=== PATIENT | male | born 1950 | race Caucasian/White ===

== ENCOUNTER → 2016-12-08 | Day surgery (SDC) | payer OTHER ==
[2016-11-25 10:55] VITALS: BMI 28.0
[~2016-12-08] VITALS: Ht 185.4 cm; Wt 96.4 kg
[~2016-12-08] MED LIST: ASPCH81X PO; ATOR10TA88 PO; LIDOCAINE HCL 2% 2 ML VIAL (20MG/ML) ONE; LTR510 PO; PANT40TA PO; PROPOFOL IV EMULSION 10 MG/ML 20 ML VIAL IV ONE; SILD100T PO; SODIUM CHLORIDE 0.9% 500ML 500 ML IV ONE
[2016-12-08 10:36] VITALS: Ht 185.4 cm; Wt 96.4 kg
--- NOTE | 2016-12-08 11:04 | Endo History and Physical ---
History & Physical Date of Service: Dec 08, 2016. Chief Complaint: HOARSENESS REFLUX Referring Physician: RENATO RUFF History of Present Illness 66 yo CM who presents for EGD secondary to GERD and hoarseness. Past Surgical History Hx Cardiac Surgery: No Hx Internal Defibrillator: No Hx Pacemaker: No Hx Abdominal Surgery: Yes (APPY) Hx of Implantable Prosthesis: No Hx Post-Op Nausea and Vomiting: No Hx Cancer Surgery: No Hx Thoracic Surgery: No Hx Orthopedic: No Hx Urinary Tract Surgery: No Family History None Social History Smoking Status: Never Smoker Hx Substance Use: No Hx Alcohol Use: Yes (OCCASSIONALLY) Allergies Coded Allergies: NO KNOWN DRUG ALLERGIES (Verified Allergy, Unknown, ., 12/08/16) Current Medications Reported Home Medications Medications Dose Route/Sig Max Daily Dose Days Date Category Dose Instructions Viagra (Sildenafil Citrate) 100 Mg Tab 100 Mg PO PRN 11/25/16 Reported Protonix (Pantoprazole Sodium) 40 Mg Tab 40 Mg PO BID 11/25/16 Reported PT VERBALIZED RECENTLY STOPPED TAKING D/T SIDE EFFECTS Lotrel 5MG/10MG (Amlodipine/Benazepril HCl) 5 Mg/10 Mg Cap 1 Cap PO QAM 11/25/16 Reported Lipitor (Atorvastatin Calcium) 10 Mg Tab 10 Mg PO QAM 11/25/16 Reported Aspirin Chewable (Aspirin) 81 Mg Chew 81 Mg PO QAM 11/25/16 Reported Vital Signs Weight (Kilograms): 96.36 Height (Feet): 6 Height (Inches): 1 Date Time Temp Pulse Resp B/P Pulse Ox O2 Delivery O2 Flow Rate FiO2 12/08/16 10:42 36.6 64 18 137/86 94 Room Air Physical Exam General Appearance: WD/WN, no apparent distress Respiratory/Chest: Auscultation: breath sounds normal Cardiovascular: Heart Auscultation: RRR Abdomen: Bowel Sounds: normal Inspection & Palpation: soft, non-distended, no tenderness, guarding & rebound Assessment and Plan Assessment: 66 yo CM who presents for EGD secondary to GERD and hoarseness. Plan: Proceed with EGD.
--- NOTE | 2016-12-08 11:47 | Discharge Instructions ---
Endoscopy Patient Instructions Date / Procedure(s) Performed Dec 08, 2016. EGD Allergy Information Coded Allergies: NO KNOWN DRUG ALLERGIES (Verified Allergy, Unknown, ., 12/08/16) Discharge Date / Findings Dec 08, 2016. Gastritis s/p biopsies Hiatal hernia Schatzki's Ring s/p dilation Medication Instructions 1) OK to resume all medications today as prescribed 2) Stop Protonix 3) Start Zantac 300mg by mouth twice daily 15 minutes prior to breakfast and dinner. Reported Home Medications Medications Dose Route/Sig Max Daily Dose Days Date Category Dose Instructions Viagra (Sildenafil Citrate) 100 Mg Tab 100 Mg PO PRN 11/25/16 Reported Protonix (Pantoprazole Sodium) 40 Mg Tab 40 Mg PO BID 11/25/16 Reported PT VERBALIZED RECENTLY STOPPED TAKING D/T SIDE EFFECTS Lotrel 5MG/10MG (Amlodipine/Benazepril HCl) 5 Mg/10 Mg Cap 1 Cap PO QAM 11/25/16 Reported Lipitor (Atorvastatin Calcium) 10 Mg Tab 10 Mg PO QAM 11/25/16 Reported Aspirin Chewable (Aspirin) 81 Mg Chew 81 Mg PO QAM 11/25/16 Reported Provider Instructions Activity Restrictions - No exercising or heavy lifting for 24 hours. - Do not drink alcohol the day of the procedure. - Do not drive a car or operate machinery until the day after the procedure. - Do not make any important decisions or sign important papers in 24 hours after the procedure. Following Day: - Return to full activity which may include returning to work/school. Diet Start your diet with liquids and light foods (jello, soup, juice, toast). Then eat your usual diet if not nauseated. Treatment For Common After Affects For mild abdominal pain, bloating, or excessive gas: - Rest - Eat lightly - Lie on right side Follow-Up Information Follow-up with RENATO RUFF as scheduled Anesthesia Information What You Should Know You have had a procedure that required some medicine to reduce anxiety and discomfort. This treatment is called moderate sedation. After receiving the treatment, you may be sleepy, but you will be able to breathe on your own. The effects of the treatment may last for several hours. Follow these instructions along with Activity/Diet recommendations noted above: * Do NOT do anything where dizziness or clumsiness would be dangerous. * Rest quietly at home today, then you can be up and about tomorrow. * Have a responsible person stay with you the rest of today. * You may have had an I.V. today. If so, you may take the dressing off later today. Recommendations Call your doctor if: * Trouble breathing * Continuous vomiting for more than 24 hours * Temperature above 101 degrees * Severe abdominal pain or bloating * Pain not relieved by pain medicine ordered * There is increased drainage or redness from any incision * A large amount of rectal bleeding greater than 2-3 tablespoons. (If you had a polyp/s removed or have hemorrhoids, a small amount of blood - from the rectum is to be expected.) * You have any unanswered questions or concerns. IN THE EVENT OF A SERIOUS EMERGENCY, GO TO THE NEAREST EMERGENCY ROOM Your discharge instructions were prepared by provider Kp Redd. Patient Instructions Signature Page Raj Recinos Patient (or Guardian) Signature/Date: I have read and understand the instructions given to me by my caregivers. Caregiver/RN/Doctor Signature/Date: The above-named patient and/or guardian has received patient instructions on this date. + Original Patient Signature Page (only) stays with chart. Please make copy for patient.
--- NOTE | 2016-12-08 11:53 | GI REPORT ---
Procedure Date: 12/08/2016 11:31 AM Procedure: Upper GI endoscopy Indications: Gastro-esophageal reflux disease Medicines: Monitored Anesthesia Care Complications: No immediate complications. Estimated Blood Loss: Estimated blood loss: none. Procedure: Pre-Anesthesia Assessment: - Prior to the procedure, a History and Physical was performed, and patient medications and allergies were reviewed. The patient's tolerance of previous anesthesia was also reviewed. The risks and benefits of the procedure and the sedation options and risks were discussed with the patient. All questions were answered, and informed consent was obtained. Prior Anticoagulants: The patient has taken aspirin, last dose was 1 day prior to procedure. ASA Grade Assessment: II - A patient with mild systemic disease. After reviewing the risks and benefits, the patient was deemed in satisfactory condition to undergo the procedure. After obtaining informed consent, the endoscope was passed under direct vision. Throughout the procedure, the patient's blood pressure, pulse, and oxygen saturations were monitored continuously. The scope was introduced through the mouth, and advanced to the second part of duodenum. The upper GI endoscopy was accomplished without difficulty. The patient tolerated the procedure well. Findings: A moderate Schatzki ring (acquired) was found at the gastroesophageal junction. A TTS dilator was passed through the scope. Dilation with an 18-19-20 mm balloon (to a maximum balloon size of 20 mm) dilator was performed. The dilation site was examined and showed moderate improvement in luminal narrowing. A medium-sized hiatus hernia was present. Localized moderate inflammation characterized by erythema was found in the gastric antrum. Biopsies were taken with a cold forceps for histology. The examined duodenum was normal. Impression: - Moderate Schatzki ring. Dilated. - Medium-sized hiatus hernia. - Gastritis. Biopsied. - Normal examined duodenum. Recommendation: - Resume previous diet. - Use Protonix (pantoprazole) 40 mg PO daily. - Await pathology results. - Return to GI office as previously scheduled. Kp Redd, DO 12/08/2016 11:53:19 AM This report has been signed electronically. Note Initiated On: 12/08/2016 11:31 AM I attest to the content of the Intraoperative Record and orders documented therein, exceptions below
--- NOTE | 2016-12-08 12:05 | Anesthesiology Progress Note ---
Anesthesia Post Op Note Date & Time Dec 08, 2016 at 12:06 Vital Signs Pain Intensity: 0 Vital Signs Past 12 Hours Date Time Temp Pulse Resp B/P Pulse Ox O2 Delivery O2 Flow Rate FiO2 12/08/16 11:48 69 18 104/56 97 Room Air 12/08/16 10:42 36.6 64 18 137/86 94 Room Air Notes Mental Status: alert / awake / arousable, participated in evaluation Pt Amnestic to Procedure: Yes Nausea / Vomiting: adequately controlled Pain: adequately controlled Airway Patency, RR, SpO2: stable & adequate BP & HR: stable & adequate Hydration State: stable & adequate Anesthetic Complications: no major complications apparent
[2016-12-08 12:30] VITALS: BP 145/82; PULSE 60; O2SAT 95
== END | disposition home or self-care (01) ==
LOC: C.GI 10:11
PROVIDERS: ATTEND Internal Medicine
DX: K22.2 Esophageal obstruction (principal); K29.70 Gastritis, unspecified, without bleeding; K21.9 Gastro-esophageal reflux disease without esophagitis; K44.9 Diaphragmatic hernia without obstruction or gangrene; Z98.890 Other specified postprocedural states; Z79.82 Long term (current) use of aspirin

== ENCOUNTER → 2017-08-06 | Outpatient (CLI) | payer OTHER ==
[~2017-08-06] MED LIST changes: +AMLO5CAP2 PO; +ATOR10TA82 PO; -ATOR10TA88 PO; -LIDOCAINE HCL 2% 2 ML VIAL (20MG/ML) ONE; -PROPOFOL IV EMULSION 10 MG/ML 20 ML VIAL IV ONE; -SODIUM CHLORIDE 0.9% 500ML 500 ML IV ONE
--- NOTE | 2017-08-06 11:46 | EXERCISE STRESS ECHO ---
*NOTICE TO RECEIVING REPUBLICAN AGENCY This information is strictly Confidential and protected under [place] law. [place] law prohibits you from making any further disclosure of this information unless further disclosure is expressly permitted by the written consent of the person to whom it pertains or is authorized by law. A general authorization for the release of medical or other information is not sufficient for this purpose. Hospital accepts no responsibility if the information is made available to any other person, INCLUDING THE PATIENT. Interpretation Summary * Name: SHAWN NEVES Study Date: 08/06/2017 09:32 AM BP: 136/82 mmHg * Patient Location: [facility] HR: 66 * : 1950 (M/d/yyyy) Gender: Male Height: 73 in * Age: 66 yrs Ethnicity: CA Weight: 204 lb * Ordering Physician: Sia Howard * Referring Physician: Feliz Roa * Performed By: Jewels Vazquez RCS * * Reason For Study: CHEST PAIN * BSA: 2.2 m2 * -- Conclusions -- * Left ventricular systolic function is normal. * No significant valvular heart disease * Positive exercise echocardiogram for inducible ischemia involving the anterior wall and apex Procedure Details * ECHOEX, CPT #[id number] * ECHO COLOR FLOW, CPT #[id number] * ECHO DOPPLER, CPT #[id number] Left Ventricular Findings with Stress * Positive exercise echocardiogram for inducible ischemia involving the anterior wall and apex Left Ventricle * The left ventricle is normal in size. * There is normal left ventricular wall thickness. * Left ventricular systolic function is normal. * The left ventricular wall motion is normal at rest. Right Ventricle * The right ventricle is normal in size and function. Atria * The left atrial size is normal. * Right atrial size is normal. Mitral Valve * The mitral valve anatomy is normal. * There is no mitral regurgitation noted. Tricuspid Valve * The tricuspid valve is not well visualized, but is grossly normal. * Significant tricuspid regurgitation is absent. Aortic Valve * The aortic valve is normal in structure and function. * The aortic valve is trileaflet. * No hemodynamically significant valvular aortic stenosis. * There is no significant aortic regurgitation. Great Vessels * The aortic root is normal size. Pericardium * There is no pericardial effusion. Stress Parameters * Normal baseline electrocardiogram. * In stage II there was development of upsloping ST segment depressions * The stress portion of this study was personally supervised by the undersigned interpreting physician. * Rest heart rate was '66' BPM. * Rest blood pressure was '136/82' * Maximum heart rate achieved was 133 bpm. * Maximum heart rate was 85 % of maximum age-predicted heart rate. * Maximum blood pressure was '173/86' * Total exercise time was '07:43' * Maximum exercise MET level achieved was '9.60' METS * Maximum treadmill speed was '3.40' miles per hour. * Maximum treadmill elevation was '14.00'% grade. Left Ventricular Findings with Stress * Baseline EKG was normal With exercise was development of significant ST segment depressions initially upsloping and later flat. ST segment changes resolved rapidly in recovery Baseline echocardiogram revealed preserved LV systolic function With exercise there was development of hypokinesis involving the mid anterior wall and apex. There was development of upper chest and neck discomfort at peak exertion Normal heart rate blood pressure response to exercise MMode 2D Measurements and Calculations IVSd 1.1 cm IVSs 1.4 cm LVIDd 5.3 cm LVIDs 4.5 cm LVPWd 1.1 cm LVPWs 1.2 cm IVS/LVPW 1.1 FS 13.5 % EDV(Teich) 132.8 ml ESV(Teich) 94.7 ml EF(Teich) 28.7 % EDV(cubed) 145.3 ml ESV(cubed) 94.0 ml EF(cubed) 35.3 % % IVS thick 26.9 % % LVPW thick 13.5 % LV mass(C)d 223.4 grams LV mass(C)dI 102.9 grams/m\S\2 LV mass(C)s 230.7 grams LV mass(C)sI 106.3 grams/m\S\2 SV(Teich) 38.1 ml SI(Teich) 17.6 ml/m\S\2 SV(cubed) 51.3 ml SI(cubed) 23.7 ml/m\S\2 Ao root diam 3.6 cm Ao root area 10.3 cm\S\2 ACS 2.5 cm LA dimension 3.8 cm LA/Ao 1.0 LVOT diam 2.0 cm LVOT area 3.0 cm\S\2 LVAd ap4 34.4 cm\S\2 LVLd ap4 8.5 cm EDV(MOD-sp4) 114.3 ml EDV(sp4-el) 118.1 ml LVAs ap4 19.4 cm\S\2 LVLs ap4 6.4 cm ESV(MOD-sp4) 50.7 ml ESV(sp4-el) 49.9 ml EF(MOD-sp4) 55.6 % EF(sp4-el) 57.8 % LVAd ap2 35.8 cm\S\2 LVLd ap2 8.4 cm EDV(MOD-sp2) 126.3 ml EDV(sp2-el) 129.7 ml LVAs ap2 20.6 cm\S\2 LVLs ap2 6.7 cm ESV(MOD-sp2) 53.8 ml ESV(sp2-el) 54.0 ml EF(MOD-sp2) 57.4 % EF(sp2-el) 58.4 % LVLd %diff -1.24 % EDV(MOD-bp) 121.3 ml LVLs %diff 3.6 % ESV(MOD-bp) 53.1 ml EF(MOD-bp) 56.2 % SV(MOD-sp4) 63.5 ml SI(MOD-sp4) 29.3 ml/m\S\2 SV(MOD-sp2) 72.4 ml SI(MOD-sp2) 33.4 ml/m\S\2 SV(MOD-bp) 68.2 ml SI(MOD-bp) 31.4 ml/m\S\2 SV(sp4-el) 68.3 ml SI(sp4-el) 31.5 ml/m\S\2 SV(sp2-el) 75.7 ml SI(sp2-el) 34.9 ml/m\S\2 Doppler Measurements and Calculations MV E max dionne 59.9 cm/sec MV A max dionne 51.8 cm/sec MV E/A 1.2 MV P1/2t max dionne 75.1 cm/sec MV P1/2t 74.6 msec MVA(P1/2t) 2.9 cm\S\2 MV dec slope 294.8 cm/sec\S\2 MV dec time 0.40 sec Ao V2 max 110.6 cm/sec Ao max PG 4.9 mmHg Ao max PG (full) -0.04 mmHg LORNA(V,A) 3.0 cm\S\2 LORNA(V,D) 3.0 cm\S\2 LV V1 max PG 4.9 mmHg LV V1 max 111.1 cm/sec
== END | disposition home or self-care (01) ==
LOC: C.CPL 09:12
PROVIDERS: ATTEND Internal Medicine Cardiovascular Disease
DX: E78.00 Pure hypercholesterolemia, unspecified (principal); I10 Essential (primary) hypertension; R07.9 Chest pain, unspecified

== ENCOUNTER → 2017-08-07 | Outpatient (CLI) | payer OTHER ==
[2017-08-07 12:08] LABS: MEAN CELL VOLUME 89.5 fL (80-100); MEAN CORPUSCULAR HGB CONC 35.8 g/dl (32-36); MEAN PLATELET VOLUME 10.2 fL (7.4-10.4); PLATELET COUNT 187 K/uL (130-400); RED BLOOD COUNT 5.03 M/uL (4.7-6.1); WHITE BLOOD COUNT 5.34 K/uL (4.8-10.8)
[2017-08-07 12:14] LABS: INR 1.1 (0.9-1.1); PROTHROMBIN TIME (PATIENT) 11.4 SECONDS (9.0-12.0)
[2017-08-07 12:33] LABS: BLOOD UREA NITROGEN 17 mg/dl (7-18); BUN/CREATININE RATIO 15.3 (10-20); CALCIUM 9.1 mg/dl (8.5-10.1); CARBON DIOXIDE 28 mmol/L (21-32); CHLORIDE 105 mmol/L (98-107); CREATININE 1.12 mg/dl (0.60-1.40); GLUCOSE 108 mg/dl (70-99); POTASSIUM 4.4 mmol/L (3.5-5.1); SODIUM 138 mmol/L (136-145)
== END | disposition home or self-care (01) ==
LOC: C.LAB 11:21
PROVIDERS: ATTEND Physician Assistant
DX: I10 Essential (primary) hypertension (principal)

== ENCOUNTER → 2017-08-09 | Day surgery (SDC) | payer OTHER ==
[~2017-08-09] VITALS: Ht 185.4 cm; Wt 93.0 kg
[~2017-08-09] MED LIST changes: +FENTANYL CITRATE INJ 50 MCG/1 ML 2 ML VIAL ONE; +HEPARIN SOD (PORCINE) 1000 UNIT/ML 10 ML VIAL ONE; +METOPROLOL SUCC 25MG EXT REL TAB PO ONE; +METOPROLOL TARTRATE 50 MG TAB ONE; +MIDAZOLAM HCL 1 MG/ML 2ML VIAL ONE; +NITROGLYCERIN/D5W 100MCG/ML 20ML SYR ONE; +NiCARDipine HCL INJ 2.5 MG/ML 10 ML AMP ONE
[2017-08-09 07:09] VITALS: BP 124/73; PULSE 70; TEMP 36.5; O2SAT 98; Ht 185.4 cm; Wt 93.0 kg
--- NOTE | 2017-08-09 07:41 | History & Physical Bridge Note ---
H&P Re-Evaluation Bridge Note: I have examined the patient, reviewed the History & Physical and in the interval since the performance of the History & Physical I have noted the following changes of clinical significance: Stress test performed on 08/06/2017 which suggested anterior and apical ischemia in association with symptoms.
--- NOTE | 2017-08-09 07:42 | Procedure Note ---
Pre-Mod Sedation Assessment General Date of Moderate Sedation: Aug 09, 2017. Vital Signs: Vital Signs Past 12 Hours Date Time Temp Pulse Resp B/P (MAP) Pulse Ox O2 Delivery O2 Flow Rate FiO2 08/09/17 07:09 36.5 70 18 124/73 98 Room Air Review Cardiovascular: regular rate, rhythm Airway Class: III Pre-Sedation Airway Assessment Oral Cavity: WNL Able to Visualize Vocal Cords: No Short Thick Neck: No Hx of Sleep Apnea: No Smoking Status: Never Smoker Mallampati Classification: Class III ASA Classification: Class III Procedure Planning Contraindications-for Mod Sed: None Yes Notes The planned sedation has been discussed with the patient and consent obtained. I have identified the patient, determined the appropriateness of sedation and have assessed the patient immediately prior to the procedure. All medicine(s) and interventions are by my order.
--- NOTE | 2017-08-09 09:04 | Procedure Note ---
Cardiac Cath Report Procedure performed: [facility], selective coronary angiography Science Job Titles: Dawson Christina MD Indication: The patient is a 66-year-old gentleman without a known history of cardiac disease who has been having symptoms of exertional chest pain. Patient underwent noninvasive stress testing 3 days ago with resulted in development of his index symptoms as well as EKG and echocardiographic abnormalities during exercise. Based on the results of his noninvasive testing he was advised to consider coronary angiography. Procedure in detail: The patient was informed of the risks benefits and alternatives to the intended procedure, he understood such an which proceed. He was taken to the cardiac catheterization suite in a fasting state. Conscious sedation was administered per protocol the patient was monitored electrocardiographically throughout today 's procedure. The right wrist area was prepped and draped in usual sterile fashion. This area was anesthetized using subcutaneous menstruation lidocaine solution. The right radial artery was then accessed using Seldinger technique, and a arterial sheath was placed at this site over a guidewire. The sheath was used to facilitate passage of the cardiac catheter for coronary angiography and left heart catheterization. Coronary angiogram was then obtained in multiple orthogonal views prior to removal of the catheter. At the conclusion of the procedure the sheath was removed and hemostasis was achieved at the access site using manual pressure. The patient tolerated procedure well, there were no immediate complications. Equipment used: 5 Syriac trapeze 3.5, JL 4 Findings: Opening aortic pressure: 84/53 Closing aortic pressure: 98/56 Coronary angiography: Significant coronary calcification was noted on initial fluoroscopy. Left main: There was some tapering at the ostium of approximately 20% Left anterior descending: Left anterior descending was subtotally occluded in its proximal portion just prior to the takeoff of a large septal perforated. He there was a 99% stenosis after the ostium of the 1st large diagonal branch. There was CLAUDINE 2 flow in the LAD during injection. Left circumflex: Left circumflex artery was a nondominant vessel. It had a 90 % occlusion at the ostium. It produced a large bifurcating OM system without discrete stenoses Right coronary: Right coronary was a dominant artery providing the PDA. There were luminal irregularities throughout its course with a 40% stenosis in the mid body. There was a 60-70% stenosis in the ostial portion of the PDA. There were [id number] collaterals was reconstituted the distal LAD. Complications: Patient developed ischemic ST segment changes during injection of the left anterior descending. At this point we elected not to perform any additional imaging of that vessel and the case was concluded. Impression: Significant 3 vessel coronary disease with subtotal occlusion of the LAD, ostial stenosis of the left circumflex and stenosis of the PDA.
[2017-08-09 12:30] VITALS: BP 112/62; PULSE 60; O2SAT 96
== END | disposition home or self-care (01) ==
LOC: C.CATH 06:41
PROVIDERS: ATTEND Internal Medicine Clinical Cardiac Electrophysiology
DX: I25.10 Atherosclerotic heart disease of native coronary artery without angina pectoris (principal); R07.9 Chest pain, unspecified; R94.31 Abnormal electrocardiogram [ECG] [EKG]; I10 Essential (primary) hypertension; E78.00 Pure hypercholesterolemia, unspecified; N40.1 Benign prostatic hyperplasia with lower urinary tract symptoms; N13.8 Other obstructive and reflux uropathy; Z82.49 Family history of ischemic heart disease and other diseases of the circulatory system

== ENCOUNTER 2017-10-23 10:50 | Emergency (ER) | payer OTHER ==
[~2017-10-23] VITALS: Ht 185.4 cm; Wt 91.0 kg
[~2017-10-23 10:50] MED LIST changes: -FENTANYL CITRATE INJ 50 MCG/1 ML 2 ML VIAL ONE; -HEPARIN SOD (PORCINE) 1000 UNIT/ML 10 ML VIAL ONE; -LTR510 PO; -METOPROLOL SUCC 25MG EXT REL TAB PO ONE; -METOPROLOL TARTRATE 50 MG TAB ONE; -MIDAZOLAM HCL 1 MG/ML 2ML VIAL ONE; -NITROGLYCERIN/D5W 100MCG/ML 20ML SYR ONE; -NiCARDipine HCL INJ 2.5 MG/ML 10 ML AMP ONE; -PANT40TA PO
[2017-10-23 10:55] VITALS: Ht 185.4 cm; Wt 91.0 kg
[2017-10-23] MEDS ORDERED: AMIO200T4 PO (11:15)
[2017-10-23] MEDS ORDERED: METO25TA3 PO (11:15)
[2017-10-23] MEDS ORDERED: ATOR80TA PO (11:15)
[2017-10-23] MEDS ORDERED: ASPI81TA28 PO (11:15)
[2017-10-23] MEDS ORDERED: SODIUM CHLORIDE 0.9% 1000ML 1,000 ML IV STA (11:33)
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
[2017-10-23] MEDS ORDERED: DIPHTHERIA/TETANUS/PERTUSSIS 0.5 ML SYR/VIAL IM. ONE (11:45)
[2017-10-23 12:06] LABS: EOS % 0.3 %; EOS ABS # 0.02 K/uL (0-0.5); HEMATOCRIT 43.7 % (42-52); HEMOGLOBIN 14.8 g/dL (14.0-18.0); IG# 0.01 K/uL (0.00-0.02); LYMPH % 23.6 %; LYMPH ABS # 1.49 K/uL (1.2-3.4); MEAN CELL VOLUME 88.3 fL (80-100); MEAN CORPUSCULAR HEMOGLOBIN 29.9 pg (25-34); MEAN CORPUSCULAR HGB CONC 33.9 g/dl (32-36); MEAN PLATELET VOLUME 10.3 fL (7.4-10.4); MONO % 10.1 %; MONO ABS # 0.64 K/uL (0.11-0.59); NEUT % 65.8 %; NEUT ABS # 4.16 K/uL (1.4-6.5); PLATELET COUNT 167 K/uL (130-400); RED CELL DISTRIBUTION WIDTH CV 14.7 % (11.5-14.5); RED CELL DISTRIBUTION WIDTH SD 47.4 fL (36.4-46.3); WHITE BLOOD COUNT 6.32 K/uL (4.8-10.8)
[2017-10-23 12:15] LABS: INR 1.1 (0.9-1.1)
[2017-10-23 12:24] LABS: CALCIUM 9.1 mg/dl (8.5-10.1); CREATININE 0.97 mg/dl (0.60-1.40); POTASSIUM 4.4 mmol/L (3.5-5.1)
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
[2017-10-23] MEDS ORDERED: CEFAZOLIN SOD 1000MG/7.5 ML IV PUSH IV STA (13:32)
[2017-10-23] MEDS ORDERED: CEPH500C PO (13:52)
[2017-10-23 14:13] VITALS: BP 119/98; PULSE 62; TEMP 36.8; O2SAT 96
[2017-10-25 11:22] LABS: ISTAT IONIZED CALCIUM 1.15 mmol/l (1.12-1.32); ISTAT POTASSIUM 4.5 mEq/L (3.3-5.0); ISTAT SODIUM 137 mEq/L (135-144)
== END 2017-10-23 14:42 | disposition home or self-care (01) ==
LOC: C.EDB 10:51 → C.EDA 14:42
DX: S31.819A Unspecified open wound of right buttock, initial encounter (principal); W32.0XXA Accidental handgun discharge, initial encounter; Z95.1 Presence of aortocoronary bypass graft; Z23 Encounter for immunization; Z90.89 Acquired absence of other organs; Z82.49 Family history of ischemic heart disease and other diseases of the circulatory system; Z79.82 Long term (current) use of aspirin

== ENCOUNTER 2017-11-28 15:14 | Emergency (ER) | payer OTHER ==
[~2017-11-28] VITALS: Ht 185.4 cm; Wt 90.2 kg
[2017-11-28 15:14] VITALS: TEMP 36.5; O2SAT 94; Ht 185.4 cm; Wt 90.2 kg
[~2017-11-28 15:14] MED LIST changes: +AMIO200T4 PO; -AMLO5CAP2 PO; -ASPCH81X PO; +ASPI81TA28 PO; -ATOR10TA82 PO; +ATOR80TA PO; +METO25TA3 PO
[2017-11-28] MEDS ORDERED: SODIUM CHLORIDE 0.9% 1000ML 1,000 ML IV STA (15:43)
--- NOTE | 2017-11-28 16:01 | EMERGENCY ROOM VISIT NOTE ---
History Report prepared by Lorie: Rusty Jett Under the Supervision of: Dr. Srikanth Riddle M.D. First contact with patient: 15:33 Chief Complaint: CARDIAC ASSESSMENT Stated Complaint: SYNCOPE Nursing Triage Summary: Patient presents to ER via [facility]. Per EMS, patient s/p quadruple bypass on 08/12/17. Patient began having chest pain and "indigestion" 1 hr STUDY LEAD. Pain radiated to back. Patient tried burping becoming dizzy and lightheaded needing to lay down on the floor. Spouse called 911. BSG enroute equaled 125. History of Present Illness The patient is a 67 year old male who presents to the Emergency Room with complaints of resolved chest pain that began at 1300. The patient states that he ate breakfast and drank coffee this afternoon when he started to experience chest pain, which radiated into his back, and "indigestion". He states that he has been trying to force himself to belch since the onset. The patient states that he took a Zantac for his symptoms. He reports that he bent down to try to belch again and became dizzy and lightheaded. His reports that he fell at that time. She states that after the fall, she noticed he experienced an episode of epistaxis. She reports he fell once more throughout the day. The patient reports he has also been experiencing cough and congestion. He denies fevers, chills, nausea, vomiting, diarrhea, a history of influenza this year, headaches, and a history of seizures. He reports a history of reflux. Source of History: patient, spouse/significant other Onset: 1300 Position: chest Timing: resolved Modifying Factors (Relieving): other (Zantac) Associated Symptoms: + cough, No fevers, No chills, No headache, No nausea, No vomiting, No diarrhea Note: Associated symptoms: dizziness, lightheadedness, falling Review of Systems See HPI for pertinent positives and negatives. A total of ten systems were reviewed and were otherwise negative. Past Medical & Surgical Surgical Problems: (1) History of quadruple bypass (2) Hx of appendectomy Family History Hypertension Social History Smoking Status: Never Smoker Marital Status: Housing Status: lives with family Occupation Status: employed Current/Historical Medications Scheduled Aspirin (Aspirin Ec), 81 MG PO QAM Atorvastatin (Lipitor), 40 MG PO DAILY Coenzyme Q10 (Ubidecarenone) (Coq-10), 100 MG PO DAILY Hydrochlorothiazide (Hctz), 25 MG PO DAILY Losartan Potassium (Cozaar), 1 TAB PO DAILY Metoprolol Succ (Toprol Xl) (Toprol-Xl), 25 MG PO DAILY Allergies Coded Allergies: NO KNOWN DRUG ALLERGIES (Verified Allergy, Unknown, ., 10/23/17) Physical Exam Vital Signs Date Time Temp Pulse Resp B/P (MAP) Pulse Ox O2 Delivery O2 Flow Rate FiO2 11/28/17 18:56 73 19 128/83 96 11/28/17 18:31 130/85 11/28/17 18:16 72 19 96 11/28/17 17:46 70 20 96 11/28/17 17:41 75 24 96 Room Air 11/28/17 17:36 69 21 95 Room Air 11/28/17 17:06 80 22 94 Room Air 11/28/17 17:01 140/74 11/28/17 17:00 73 22 96 Room Air 11/28/17 16:55 132/70 11/28/17 15:49 76 20 94 Room Air 11/28/17 15:44 80 15 96 Room Air 11/28/17 15:38 113/74 11/28/17 15:29 75 11/28/17 15:21 125/80 11/28/17 15:14 36.5 78 18 125/80 94 Room Air 11/28/17 15:14 94 Room Air 11/28/17 15:14 94 Room Air 11/28/17 15:14 36.5 78 18 125/80 94 Room Air Physical Exam GENERAL: Awake, alert, fatigued appearing, in no distress HENT: Normocephalic, atraumatic. Dry mucous membranes. EYES: Normal conjunctiva. Sclera non-icteric. NECK: Supple. No nuchal rigidity. FROM. No JVD. RESPIRATORY: Clear to auscultation. CARDIAC: Regular rate, normal rhythm. Extremities warm and well perfused. Pulses equal. ABDOMEN: Soft, non-distended. No tenderness to palpation. No rebound or guarding. No masses. RECTAL: Deferred. MUSCULOSKELETAL: Chest examination reveals no tenderness. The back is symmetrical on inspection without obvious abnormality. There is no CVA tenderness to palpation. No joint edema. LOWER EXTREMITIES: Calves are equal size bilaterally and non-tender. No edema. No discoloration. NEURO: Normal sensorium. No sensory or motor deficits noted. SKIN: No rash or jaundice noted. Medical Decision & Procedures ER Provider Diagnostic Interpretation: Radiology results as stated below per my review and radiologist interpretation: CT SCAN OF THE BRAIN WITHOUT IV CONTRAST CLINICAL HISTORY: Syncope. Dizziness. COMPARISON STUDY: No priors. TECHNIQUE: Unenhanced axial CT scan of the brain is performed from the vertex to the skull base. A dose lowering technique was utilized adhering to the principles of ALARA. CT DOSE: 614.27 mGy.cm FINDINGS: Brain parenchyma: There is mild subcortical and periventricular microangiopathic change. There is no hemorrhage, mass effect, or evidence of acute territorial ischemia by CT criteria. A chronic lacunar infarct is identified in the right basal ganglia. Lehman-white matter is preserved. No extra-axial fluid collection is seen. Ventricles, sulci, cisterns: Prominent secondary to involutional change. Intracranial vasculature: There is atherosclerotic calcification of the cavernous carotid and vertebral arteries. Calvarium: Unremarkable. Sinuses and mastoids: Trace mucosal thickening is seen in the maxillary antra. The remaining paranasal sinuses are clear. The mastoid air cells are well pneumatized. Orbits: The bony orbits are grossly intact. IMPRESSION: There is no hemorrhage, mass effect, or evidence of acute territorial ischemia by CT criteria. Electronically signed by: Sergio Maria M.D. 11/28/2017 4:30 PM Dictated Date/Time: 11/28/2017 4:28 PM SINGLE VIEW CHEST CLINICAL HISTORY: Atypical chest pain. FINDINGS: An AP, portable, upright chest radiograph is obtained. No prior studies are available for comparison at the time of dictation. The examination is degraded by portable technique and patient rotation. The patient is status post midline sternotomy. The heart is enlarged and there is atherosclerotic calcification of the thoracic aorta. The pulmonary vasculature is noncongested. There is mild elevation of right hemidiaphragm and bibasilar atelectasis. No airspace consolidation or large pleural effusion is identified. No pneumothorax is seen. The skeletal structures are osteopenic. The bony thorax is grossly intact. IMPRESSION: Cardiomegaly with no acute cardiopulmonary abnormality. Electronically signed by: Sergio Maria M.D. 11/28/2017 4:06 PM Dictated Date/Time: 11/28/2017 4:05 PM Laboratory Results 11/28/17 15:55 Red Blood Count 5.00, Mean Corpuscular Volume 87.0, Mean Corpuscular Hemoglobin 30.8, Mean Corpuscular Hemoglobin Concent 35.4, Mean Platelet Volume 10.0, Neutrophils (%) (Auto) 60.1, Lymphocytes (%) (Auto) 25.6, Monocytes (%) (Auto) 13.9, Eosinophils (%) (Auto) 0.0, Basophils (%) (Auto) 0.2, Neutrophils # (Auto ) 3.34, Lymphocytes # (Auto) 1.42, Monocytes # (Auto) 0.77, Eosinophils # (Auto ) 0.00, Basophils # (Auto) 0.01 11/28/17 15:55 Test 11/28/17 15:55 11/28/17 16:14 11/28/17 18:04 White Blood Count 5.55 K/uL (4.8-10.8) Red Blood Count 5.00 M/uL (4.7-6.1) Hemoglobin 15.4 g/dL (14.0-18.0) Hematocrit 43.5 % (42-52) Mean Corpuscular Volume 87.0 fL (80-100) Mean Corpuscular Hemoglobin 30.8 pg (25-34) Mean Corpuscular Hemoglobin Concent 35.4 g/dl (32-36) Platelet Count 148 K/uL (130-400) Mean Platelet Volume 10.0 fL (7.4-10.4) Neutrophils (%) (Auto) 60.1 % Lymphocytes (%) (Auto) 25.6 % Monocytes (%) (Auto) 13.9 % Eosinophils (%) (Auto) 0.0 % Basophils (%) (Auto) 0.2 % Neutrophils # (Auto) 3.34 K/uL (1.4-6.5) Lymphocytes # (Auto) 1.42 K/uL (1.2-3.4) Monocytes # (Auto) 0.77 K/uL (0.11-0.59) Eosinophils # (Auto) 0.00 K/uL (0-0.5) Basophils # (Auto) 0.01 K/uL (0-0.2) RDW Standard Deviation 47.7 fL (36.4-46.3) RDW Coefficient of Variation 14.9 % (11.5-14.5) Immature Granulocyte % (Auto) 0.2 % Immature Granulocyte # (Auto) 0.01 K/uL (0.00-0.02) Anion Gap 6.0 mmol/L (3-11) Est Creatinine Clear Calc Drug Dose 62.6 ml/min Estimated GFR () 64.6 Estimated GFR (Non- 55.7 BUN/Creatinine Ratio 13.8 (10-20) Calcium Level 8.8 mg/dl (8.5-10.1) Magnesium Level 2.4 mg/dl (1.8-2.4) Total Bilirubin 0.7 mg/dl (0.2-1) Direct Bilirubin 0.2 mg/dl (0-0.2) Aspartate Amino Transf (AST/SGOT) 17 U/L (15-37) Alanine Aminotransferase (ALT/SGPT) 28 U/L (12-78) Alkaline Phosphatase 71 U/L (45-117) Total Protein 7.3 gm/dl (6.4-8.2) Albumin 3.4 gm/dl (3.4-5.0) Lipase 164 U/L (73-393) Influenza Type A Antigen Neg for Influ A (NEG) Influenza Type B Antigen Neg for Influ B (NEG) Troponin I < 0.015 ng/ml (0-0.045) Laboratory results reviewed by me Medications Administered Medications (Trade) Dose Ordered Sig/Trent Route Start Time Stop Time Status Last Admin Dose Admin Sodium Chloride 1,000 ml @ 999 mls/hr Q1H1M STAT IV 11/28/17 15:43 11/28/17 16:43 DC 11/28/17 16:01 999 MLS/HR ECG Per My Interpretation Indication: chest pain Rate (beats per minute): 74 Rhythm: normal sinus Findings: no acute ischemic change, other (Normal axis) ED Course 1541: The patient was evaluated in room A12B. A complete history and physical exam was performed. 175: I reevaluated the patient and he is doing well. I discussed the results and doing a repeat troponin. If his results are normal, he is able to be discharged home. 1831: I reevaluated the patient. Discussed results and discharge instructions: He verbalized understanding and agreement. The patient is ready for discharge. Medical Decision I reviewed the patient's past medical history, medications, and the nursing notes as described above. The patient's presentation and history were concerning for etiologies such as vasovagal event, infection, hypoglycemia, electrolyte abnormalities, cardiac sources, intracerebral event, toxicologic, neurologic, as well as others were entertained. The patient is a 67-year-old gentleman with a past medical history of CAD status post CABG in July 2017 who presents emergency department after a near syncopal episode after he experienced some epigastric burning in the setting of drinking coffee and eating cereal and felt lightheaded when bending over and lowered himself to the ground per hpi. On arrival the patient is well- appearing, no acute distress, afebrile stable vital signs. He is neurologically intact. EKG unremarkable without evidence of acute ischemia. Initial Troponin negative a well as 2 hour delta troponin. WBC within normal limits. Chest x-ray and CT head negative. Patient does report the onset of some mild congestion beginning yesterday with decreased appetite. Symptoms possibly related to a mild viral gastritis resulting in a vasovagal episode. Patient feeling well throughout ED observation. Plan for pcp f/u. Findings and plan for follow-up reviewed with patient. Patient agreeable and d/c'd per discharge instructions. Medication Reconcilliation Current Medication List: was personally reviewed by me Blood Pressure Screening Patient's blood pressure: Normal blood pressure Impression Primary Impression: Syncope Scribe Attestation The scribe's documentation has been prepared under my direction and personally reviewed by me in its entirety. I confirm that the note above accurately reflects all work, treatment, procedures, and medical decision making performed by me. Departure Information Dispostion Home / Self-Care Referrals Jimbo Sin D.O. (PCP) Patient Instructions ED Near Syncope Unkn, My [facility] Additional Instructions Please follow up with your primary care physician in the next 1-3 days for re- evaluation. The cause of your episode is unclear at this time. However, it may have been due to a vagal response due to possible reflux/gastritis pain. Otherwise, your exam, EKG, chest xray, lab results, CT scan did not show signs of an emergent condition at this time. Zantac as needed for acid reduction if symptoms recur. Drink plenty of fluids to ensure hydration. Return to the emergency department for worsening symptoms as described in the accompanying instructions.
[2017-11-28 16:05] LABS: BASO % 0.2 %; BASO ABS # 0.01 K/uL (0-0.2); HEMATOCRIT 43.5 % (42-52); HEMOGLOBIN 15.4 g/dL (14.0-18.0); IG# 0.01 K/uL (0.00-0.02); LYMPH % 25.6 %; LYMPH ABS # 1.42 K/uL (1.2-3.4); MEAN CORPUSCULAR HEMOGLOBIN 30.8 pg (25-34); MEAN CORPUSCULAR HGB CONC 35.4 g/dl (32-36); MONO % 13.9 %; MONO ABS # 0.77 K/uL (0.11-0.59); NEUT % 60.1 %; NEUT ABS # 3.34 K/uL (1.4-6.5); PLATELET COUNT 148 K/uL (130-400); RED CELL DISTRIBUTION WIDTH CV 14.9 % (11.5-14.5); RED CELL DISTRIBUTION WIDTH SD 47.7 fL (36.4-46.3); WHITE BLOOD COUNT 5.55 K/uL (4.8-10.8)
--- NOTE | 2017-11-28 16:08 | DIAGNOSTIC IMAGING REPORT ---
SINGLE VIEW CHEST CLINICAL HISTORY: Atypical chest pain. FINDINGS: An AP, portable, upright chest radiograph is obtained. No prior studies are available for comparison at the time of dictation. The examination is degraded by portable technique and patient rotation. The patient is status post midline sternotomy. The heart is enlarged and there is atherosclerotic calcification of the thoracic aorta. The pulmonary vasculature is noncongested. There is mild elevation of right hemidiaphragm and bibasilar atelectasis. No airspace consolidation or large pleural effusion is identified. No pneumothorax is seen. The skeletal structures are osteopenic. The bony thorax is grossly intact. IMPRESSION: Cardiomegaly with no acute cardiopulmonary abnormality. Electronically signed by: Sergio Maria M.D. 11/28/2017 4:06 PM Dictated Date/Time: 11/28/2017 4:05 PM
[2017-11-28 16:22] LABS: ALBUMIN 3.4 gm/dl (3.4-5.0); ALT/SGPT 28 U/L (12-78); BLOOD UREA NITROGEN 18 mg/dl (7-18); CALCIUM 8.8 mg/dl (8.5-10.1); CARBON DIOXIDE 29 mmol/L (21-32); CREATININE 1.33 mg/dl (0.60-1.40); GLUCOSE 132 mg/dl (70-99); LIPASE 164 U/L (73-393); SODIUM 134 mmol/L (136-145)
[2017-11-28 16:27] LABS: ALKALINE PHOSPHATASE 71 U/L (45-117); AST/SGOT 17 U/L (15-37); TOTAL PROTEIN 7.3 gm/dl (6.4-8.2)
--- NOTE | 2017-11-28 16:32 | DIAGNOSTIC IMAGING REPORT ---
CT SCAN OF THE BRAIN WITHOUT IV CONTRAST CLINICAL HISTORY: Syncope. Dizziness. COMPARISON STUDY: No priors. TECHNIQUE: Unenhanced axial CT scan of the brain is performed from the vertex to the skull base. A dose lowering technique was utilized adhering to the principles of ALARA. CT DOSE: 614.27 mGy.cm FINDINGS: Brain parenchyma: There is mild subcortical and periventricular microangiopathic change. There is no hemorrhage, mass effect, or evidence of acute territorial ischemia by CT criteria. A chronic lacunar infarct is identified in the right basal ganglia. Lehman-white matter is preserved. No extra-axial fluid collection is seen. Ventricles, sulci, cisterns: Prominent secondary to involutional change. Intracranial vasculature: There is atherosclerotic calcification of the cavernous carotid and vertebral arteries. Calvarium: Unremarkable. Sinuses and mastoids: Trace mucosal thickening is seen in the maxillary antra. The remaining paranasal sinuses are clear. The mastoid air cells are well pneumatized. Orbits: The bony orbits are grossly intact. IMPRESSION: There is no hemorrhage, mass effect, or evidence of acute territorial ischemia by CT criteria. Electronically signed by: Sergio Maria M.D. 11/28/2017 4:30 PM Dictated Date/Time: 11/28/2017 4:28 PM
[2017-11-28 17:03] LABS: INFLUENZA B ANTIGEN Neg for Influ B (NEG)
[2017-11-28] MEDS ORDERED: LOSA50TA6 PO (17:32)
[2017-11-28] MEDS ORDERED: COEN100C11 PO (17:32)
[2017-11-28] MEDS ORDERED: ATOR-24 PO (17:32)
[2017-11-28] MEDS ORDERED: HYDR25TA4 PO (17:32)
[2017-11-28 18:56] VITALS: BP 128/83; PULSE 73; O2SAT 96
== END 2017-11-28 18:58 | disposition home or self-care (01) ==
LOC: EDBD 15:14 → C.EDA 15:16
DX: R55 Syncope and collapse (principal); R04.0 Epistaxis; K21.9 Gastro-esophageal reflux disease without esophagitis; Z95.1 Presence of aortocoronary bypass graft; Z79.82 Long term (current) use of aspirin; Z82.49 Family history of ischemic heart disease and other diseases of the circulatory system

== ENCOUNTER → 2017-12-14 | Outpatient (CLI) | payer OTHER ==
[~2017-12-14] MED LIST changes: -AMIO200T4 PO; +ATOR-24 PO; -ATOR80TA PO; +COEN100C11 PO; +HYDR25TA4 PO; +LOSA50TA6 PO; -SILD100T PO
== END | disposition home or self-care (01) ==
LOC: C.LAB 11:00
PROVIDERS: ATTEND Physician Assistant
DX: E78.00 Pure hypercholesterolemia, unspecified (principal)